=== PATIENT | female | born 1950 | race Native Hawaiian/Other Pacific Islander ===

== ENCOUNTER 2016-03-16 09:14 | Outpatient (CLI) | payer OTHER | END 2016-03-16 10:14 | disposition home or self-care (01) | LOC: RAD 09:14 | DX: M25.532 Pain in left wrist (principal); M79.642 Pain in left hand ==

== ENCOUNTER 2020-12-29 09:08 | Outpatient (CLI) | payer OTHER | END 2020-12-29 21:52 | disposition home or self-care (01) | LOC: MAMMO 09:08 | PROVIDERS: ATTEND Family Medicine | DX: Z12.31 Encounter for screening mammogram for malignant neoplasm of breast (principal) ==

== ENCOUNTER 2022-11-04 08:55 | Outpatient (CLI) | payer OTHER | END 2022-11-04 18:58 | disposition home or self-care (01) | LOC: RESP 08:55 | PROVIDERS: ATTEND Family Medicine | DX: J44.9 Chronic obstructive pulmonary disease, unspecified (principal) ==